=== PATIENT | female | born 1955 | race Caucasian/White ===

== ENCOUNTER → 2021-06-04 | Day surgery (SDC) | payer MEDICARE, OTHER ==
[~2021-06-04] VITALS: Ht 172.7 cm; Wt 89.8 kg
[~2021-06-04] MED LIST: ALTACE10 MG PO; ASPIRIN EC81 MG PO; LOPRESSOR25 MG PO; NORVASC5 MG PO
[2021-06-04 08:10] LABS: HCT 42.8 % (37.0-47.0); HGB 14.9 g/dl (12.5-16.0); MCH 30.3 pg (25.0-31.0); MCHC 34.8 g/dL (32.0-36.0); MPV 11.8 fL (6.0-9.5); RBC 4.92 M/uL (4.20-5.40); WBC 10.1 K/uL (4.0-10.5)
[2021-06-04 08:41] LABS: ALBUMIN 3.8 g/dL (3.4-5.0); BILIRUBIN - TOTAL 0.4 mg/dL (0.2-1.0); BUN/CREAT RATIO (CALC) 11.9 RATIO; CREATININE 0.67 mg/dL (0.51-0.95); GLOBULIN (CALCULATION) 4.3 g/dL; POTASSIUM 3.9 mmol/L (3.5-5.1); TOTAL PROTEIN 8.1 g/dL (6.4-8.2)
== END | disposition home or self-care (01) ==
LOC: FAS 07:35
PROVIDERS: Surgery
DX: Z12.11 Encounter for screening for malignant neoplasm of colon (principal); I10 Essential (primary) hypertension; Z86.010 Personal history of colon polyps; Z98.51 Tubal ligation status; Z80.0 Family history of malignant neoplasm of digestive organs; Z88.0 Allergy status to penicillin; Z79.82 Long term (current) use of aspirin
CPT/HCPCS: 36415; 80053; J2704; J7120